=== PATIENT | female | born 1960 | race Caucasian/White ===

== ENCOUNTER 2016-11-25 21:35 | Emergency (ER) | payer SELFPAY ==
[2016-11-25 21:44] VITALS: BP 156/115; PULSE 99; RESP 20; TEMP 98.1; O2SAT 93
[2016-11-25] MEDS ORDERED: IBUPROFEN 600 MG TAB PO ONE (22:11)
[2016-11-25] MEDS ORDERED: ACETAMINOPHEN 500 MG TAB PO ONE (22:11)
[2016-11-25] MEDS ORDERED: PANTOPRAZOLE SODIUM 40 MG TAB PO ONE (22:11)
--- NOTE | 2016-11-25 22:12 | EDPHY ---
H & P Stated Complaint: Atraumatic back pain Time Seen by Provider: 11/25/16 21:59 HPI/ROS: Plane: Back pain HPI: 56-year-old woman states that she just arrived today number from [place] and arrived here for 3 o'clock this afternoon. Patient states she has been walking all day and is exacerbating her low back pain. She states she has a history of a disc herniation at L4-L5 and her pain is acting up. She has been able to ambulate but has been caring very heavy backpack and caring bags. She is in the emergency department tonight stating her pain is under control and that she needs Percocet. She states the only thing she is taking medical marijuana which has not helped. She has not taken any anti-inflammatories or other analgesia. Denies any new numbness or tingling. No difficulty with bowel or bladder. No fevers or chills. Denies IV drug use. ROS: 10 point Review of Systems is negative except as noted in the HPI. Past medical history: Chronic back pain Medications: None Allergies: Penicillin Physical exam: Gen: Awake, Alert, No Distress HEENT: Nose: no rhinorrhea Eyes: PERRLA, EOMI Mouth: Moist mucosa Neck: Supple, no JVD Chest: nontender, lungs clear to auscultation Heart: S1, S2 normal, no murmur Abd: Soft, non-tender, no guarding Back: no CVA tenderness, no midline tenderness Ext: no edema, non-tender Skin: no rash Neuro: CN II-XII intact, Sensation grossly intact, Strength 5/5 in bilateral upper and lower extremities Patient is ambulating unassisted without any difficulty. - Personal History Tetanus Vaccine Date: 2010 - Medical/Surgical History Hx Asthma: No Hx Chronic Respiratory Disease: Yes Hx Diabetes: No Hx Cardiac Disease: No Hx Renal Disease: No Hx Cirrhosis: No Hx Alcoholism: No Hx HIV/AIDS: No Hx Splenectomy or Spleen Trauma: No Other PMH: COPD. RA. Chronic neck pain secondary to slipped disc at C4-C5. PTSD - Social History Smoking Status: Current every day smoker Constitutional: Initial Vital Signs Temperature (C) 36.7 C 11/25/16 21:42 Heart Rate 99 11/25/16 21:42 Respiratory Rate 20 11/25/16 21:42 Blood Pressure 156/115 H 11/25/16 21:42 O2 Sat (%) 93 11/25/16 21:42 O2 Delivery Mode Room Air Allergies/Adverse Reactions: Penicillins Allergy (Unknown, Verified 05/16/12 22:35) egg Allergy (Verified 11/25/16 21:42) Home Medications: Medication Instructions Recorded Flexeril 01/10/14 Hydroxychloroquine Sulfate 01/11/14 Ibuprofen [Motrin (*)] 600 mg PO TID PRN #20 tab 01/11/14 Percocet 5/325 (RX) 01/11/14 Medical Decision Making ED Course/Re-evaluation: 56-year-old woman walked in the emergency department caring 2 very large back Russell complaining of an exacerbation of her chronic back pain and stating that she requires Percocet. Patient states she just arrived from [facility] to [facility] and has been walking all day caring her heavy bags exacerbating her chronic pain. Patient not tried any other medications. I will give her ibuprofen and acetaminophen and reassess. 0605 patient states that her pain is not improved. I have again reiterated that I do not feel that narcotics are appropriate treatment for her back aching from her caring her heavy bags today. Patient became angry and stated that she would then be leaving if I was not going to give her any narcotics. 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 There is no evidence of acute pain in any of her movements and she ambulated without any difficulty. - Data Points Medications Given: Discontinued Medications Acetaminophen (Tylenol) 1,000 mg PO EDNOW ONE Stop: 11/25/16 22:12 Last Admin: 11/25/16 22:20 Dose: 1,000 mg Ibuprofen (Motrin) 600 mg PO EDNOW ONE Stop: 11/25/16 22:12 Last Admin: 11/25/16 22:20 Dose: 600 mg Pantoprazole Sodium (Protonix) 40 mg PO EDNOW ONE Stop: 11/25/16 22:12 Last Admin: 11/25/16 22:20 Dose: 40 mg Departure - Departure Disposition: Against Medical Advice Clinical Impression: Back pain Condition: Good Instructions: Chronic Back Pain (ED) Additional Instructions: Follow up with the [facility] for any concerns. Referrals: Patient,NotPresent [Unknown] - As per Instructions [facility],. [Clinic] - As per Instructions
== END 2016-11-25 23:31 | disposition left against medical advice (07) ==
LOC: EDUNIT#
DX: M54.5 Low back pain (principal); J44.9 Chronic obstructive pulmonary disease, unspecified; F17.200 Nicotine dependence, unspecified, uncomplicated

== ENCOUNTER 2016-11-28 20:13 | Emergency (ER) | payer MEDICAID, OTHER ==
--- NOTE | 2016-11-28 20:21 | EDPHY ---
H & P Time Seen by Provider: 11/28/16 20:21 - Personal History Tetanus Vaccine Date: 2010 - Medical/Surgical History Hx Asthma: No Hx Chronic Respiratory Disease: Yes Hx Diabetes: No Hx Cardiac Disease: No Hx Renal Disease: No Hx Cirrhosis: No Hx Alcoholism: No Hx HIV/AIDS: No Hx Splenectomy or Spleen Trauma: No Other PMH: COPD. RA. Chronic neck pain secondary to slipped disc at C4-C5. PTSD - Social History Smoking Status: Current every day smoker Allergies/Adverse Reactions: Penicillins Allergy (Unknown, Verified 05/16/12 22:35) egg Allergy (Verified 11/25/16 21:42) Home Medications: Medication Instructions Recorded Flexeril 01/10/14 Hydroxychloroquine Sulfate 01/11/14 Ibuprofen [Motrin (*)] 600 mg PO TID PRN #20 tab 01/11/14 Percocet 5/325 (RX) 01/11/14 Medical Decision Making ED Course/Re-evaluation: CHIEF COMPLAINT: Right shoulder pain. HISTORY OF PRESENT ILLNESS: The patient is a 56-year-old female who presents with right shoulder pain since yesterday. The silveira is described as stabbing and is worsened with movement. She believes the pain is from having to carry her bag around. She denies numbness or weakness in her right hand. She has no other complaints. REVIEW OF SYSTEMS: A 10 point review of systems was performed and is negative with the exception of the elements mentioned in the history of present illness. PHYSICAL EXAM: HR, BP, O2 Sat, RR. Temp noted General Appearance: Alert, well hydrated, appropriate, and non-toxic appearing. Head: Atraumatic without scalp tenderness or obvious injury Eyes: Pupils equal, round, reactive to light and accommodation, EOMI, no trauma , no injection. Ears: Clear bilaterally, no perforation, normal landmarks Nose: Atraumatic, no rhinorrhea, clear. Throat: There is no erythema or exudates, no lesions, normal tonsils, mucus membranes moist. Neck: Supple, 2+ carotid upstroke, nontender, no lymphadenopathy. Respiratory: No retractions, no distress, no wheezes, and no accessory muscle use. Lungs are clear to auscultation bilaterally. Cardiovascular: Regular rate and rhythm, no murmurs, rubs, or gallops. Bilateral carotid, radial, dorsalis pedis, and posterior tibial pulses intact. Good capillary refill all extremities. Gastrointestinal: Abdomen is soft, nontender, non-distended, no masses, no rebound, no guarding, no peritoneal signs. Musculoskeletal: Right shoulder pain with range of motion. Neurological: Alert, appropriate, and interactive. The patient has normal DTRs and non-focal cranial nerves, motor, sensory, and cerebellar exam. Skin: No rashes, good turgor, no nodules on palpation. Past medical history:Left shoulder injury. Past surgical history:Denies. Family history:N/A. Social history:Has 6 kids. DIFFERENTIAL DIAGNOSIS: The differential diagnosis includes but is not limited to: sprain, strain, fracture, dislocation. MEDICAL DECISION MAKIN-year-old female presents with 2 days of right shoulder pain that was caused by carrying her large bag of belongings. She has no distal neurological deficits , no numbness, no weakness. She has pain with range of motion of her shoulder. I do not believe an x-ray is indicated. She needs an MRI and will be given referral to orthopedics for this. I discussed opiate pain medications with her. She understands she will be unable to return to get more. She will be given a take home pack of Vicodin and a prescription for Diclofenac Sodium. She is comfortable with the plan. Departure - Departure Disposition: Home, Routine, Self-Care Clinical Impression: Sprain of right shoulder Qualifiers: Encounter type: initial encounter Shoulder sprain type: unspecified sprain Qualified Code(s): S43.401A - Unspecified sprain of right shoulder joint, initial encounter Condition: Good Instructions: Shoulder Sprain (ED), Hydrocodone/Acetaminophen (By mouth) Additional Instructions: Call Dr. Montes, orthopedics, tomorrow to set up an appointment. Return to the emergency department for any serious worsening of condition. Referrals: Heidy Montes MD [Medical Doctor] - As per Instructions Report Scribed for: Brian Paulson Report Scribed by: Aidne Young Date of Report: 11/28/16 Time of Report: 20:26
[2016-11-28] MEDS ORDERED: HYDROCOD/APAP 5/325 PREPACK#6 BTL TAKEHOME ONE (20:26)
[2016-11-28 20:28] VITALS: BP 170/100; PULSE 81; RESP 16; TEMP 97.9; O2SAT 100
== END 2016-11-28 21:06 | disposition home or self-care (01) ==
LOC: EDUNIT#
DX: S43.401A Unspecified sprain of right shoulder joint, initial encounter (principal); J44.9 Chronic obstructive pulmonary disease, unspecified; F17.200 Nicotine dependence, unspecified, uncomplicated; X58.XXXA Exposure to other specified factors, initial encounter
CPT/HCPCS: A4565

== ENCOUNTER 2016-12-21 14:21 | Emergency (ER) | payer MEDICAID ==
--- NOTE | 2016-12-21 14:31 | EDPHY ---
H & P Time Seen by Provider: 12/21/16 14:23 HPI/ROS: Chief complaint. Shortness of breath HPI. 56-year-old female history of COPD here by EMS with complaint of shortness of breath Patient was seen by both Dr. Joel and Vineet. He will continue her care ROS Constitutional. [no fever/chills, no weakness] Eyes. [no problems with vision] ENT. [no sore throat, no nasal drainage] Cardiovascular. [no chest pain] Respiratory. [no shortness of breath, no cough] Abdominal. [no abdominal pain, no nausea/vomiting, no diarrhea] . [no problems urinating] MS. [no calf pain/swelling, no neck/back pain, no joint pain] Skin. [no rash] Lymph. [no swollen glands] Neuro. [no headache, no dizziness, no difficulty walking or with speech] Smoking Status: Current every day smoker Allergies/Adverse Reactions: Penicillins Allergy (Unknown, Verified 05/16/12 22:35) egg Allergy (Verified 11/25/16 21:42) Home Medications: Medication Instructions Recorded Flexeril 01/10/14 Hydroxychloroquine Sulfate 01/11/14 Ibuprofen [Motrin (*)] 600 mg PO TID PRN #20 tab 01/11/14 Percocet 5/325 (RX) 01/11/14 Diclofenac Sodium [Voltaren 50 MG 50 mg PO BID #30 tab 11/28/16 (*)] Departure - Departure Referrals: NONE *PRIMARY CARE P,. [Primary Care Provider] - As per Instructions
[2016-12-21] MEDS ORDERED: LORazepam 2 MG/ML INJ IVP ONE (14:32)
[2016-12-21] MEDS ORDERED: IPRATROPIUM/ALBUTEROL 3 ML DEYVIAL IH ONE ×2 (14:32→15:49)
--- NOTE | 2016-12-21 14:49 | EDPHY ---
H & P Time Seen by Provider: 12/21/16 14:23 HPI/ROS: CHIEF COMPLAINT: Shortness of breath HISTORY OF PRESENT ILLNESS: Patient is a 56-year-old [facility] complaining of shortness of breath. She has a history of COPD. She states that she is exposed to black mold at the homeless [facility] and thinks that it is exacerbating her symptoms. She does not have any home albuterol. She is not taking any medications. She states in the past she has been on steroids but they make her feel crazy. She denies any recent fevers or viral type illness. No runny nose. No sore throat. REVIEW OF SYSTEMS: Constitutional: denies: chills, fever, recent illness, recent injury EENTM: denies: blurred vision, double vision, nose congestion Respiratory: See HPI Cardiac: denies: chest pain, irregular heart rate, lightheadedness, palpitations Gastrointestinal/Abdominal: denies: abdominal pain, diarrhea, nausea, vomiting, blood streaked stools Genitourinary: denies: dysuria, frequency, hematuria, pain Musculoskeletal: denies: joint pain, muscle pain Skin: denies: lesions, rash, jaundice, bruising Neurological: denies: headache, numbness, paresthesia, tingling, dizziness, weakness Hematologic/Lymphatic: denies: blood clots, easy bleeding, easy bruising Immunologic/allergic: denies: HIV/AIDS, transplant EXAM: GENERAL: Well-appearing, well-nourished and in no acute distress. HEAD: Atraumatic, normocephalic. EYES: Pupils equal round and reactive to light, extraocular movements intact, sclera anicteric, conjunctiva are normal. ENT: TMs normal, nares patent, oropharynx clear without exudates. Moist mucous membranes. NECK: Normal range of motion, supple without lymphadenopathy or JVD. LUNGS: Breath sounds clear to auscultation bilaterally and equal. No wheezes rales or rhonchi. HEART: Regular rate and rhythm without murmurs, rubs or gallops. ABDOMEN: Soft, nontender, normoactive bowel sounds. No guarding, no rebound. No masses appreciated. BACK: No CVA tenderness, no spinal tenderness, step-offs or deformities EXTREMITIES: Normal range of motion, no pitting or edema. No clubbing or cyanosis. NEUROLOGICAL: Cranial nerves II through XII grossly intact. Normal speech, normal gait. 5/5 strength, normal movement in all extremities, normal sensation PSYCH: Normal mood, normal affect. SKIN: Warm, dry, normal turgor, no visible rashes or lesions. Source: Patient Exam Limitations: No limitations - Personal History Tetanus Vaccine Date: 2010 - Medical/Surgical History Hx Asthma: No Hx Chronic Respiratory Disease: Yes Hx Diabetes: No Hx Cardiac Disease: No Hx Renal Disease: No Hx Cirrhosis: No Hx Alcoholism: No Hx HIV/AIDS: No Hx Splenectomy or Spleen Trauma: No Other PMH: COPD. RA. Chronic neck pain secondary to slipped disc at C4-C5. PTSD - Family History Significant Family History: No pertinent family hx - Social History Smoking Status: Current every day smoker Alcohol Use: Sober Drug Use: None Constitutional: Initial Vital Signs Temperature (C) 37.2 C 12/21/16 14:46 Heart Rate 117 H 12/21/16 14:46 Respiratory Rate 22 H 12/21/16 14:46 Blood Pressure 177/86 H 12/21/16 14:46 O2 Sat (%) 95 12/21/16 14:46 O2 Delivery Mode Room Air Allergies/Adverse Reactions: Penicillins Allergy (Unknown, Verified 05/16/12 22:35) egg Allergy (Verified 11/25/16 21:42) Home Medications: Medication Instructions Recorded Ibuprofen [Motrin (*)] 600 mg PO TID PRN #20 tab 01/11/14 levOFLOXACIN [levAQUIN] 750 mg PO DAILY #10 tab 12/21/16 Medical Decision Making ED Course/Re-evaluation: Patient is demanding a test for black mold in her blood. We discussed the fact that this is not going to be beneficial to her acute treatment. She would like to have it done so that she knows whether not it is black mold she was exposed to. She will follow up with the results her primary physician. She is also requesting some Ativan and states that she has a history of anxiety. Breath sounds are clear. We will treat her with DuoNeb and re-evaluate. 4:05 p.m. the patient is doing much better. She is requesting a cough suppressant. She states she cannot feel prescriptions. I will give her codeine here and a take-home pack of Vicodin. Also I will treat her with albuterol. She declines steroids. She also requested the recheck her urine because she has had some dysuria although later told us that she does not have dysuria. 4:24 p.m. the patient the urine is borderline positive. She complains of urination when she is coughing. She states that last time that happened was a urinary tract infection. I will treat her with Levaquin which should cover urinary pathogens as well as long. She does not have money to fill the prescription will ask pharmacy to do it. Differential Diagnosis: Partial list of the Differential diagnosis considered include but were not limited to; COPD, asthma exacerbation and although unlikely based on the history and physical exam, I also considered bronchitis, pneumonia, acute coronary disease, dissection, PE. I discussed these differential diagnoses and the plan with the patient as well as the usual and expected course. The patient understands that the diagnosis is provisional and that in medicine we are not always correct and that further workup is often warranted. Usual and customary warnings were given. All of the patient's questions were answered. The patient was instructed to return to the emergency department should the symptoms at all worsen or return, otherwise to followup with the physician as we discussed. - Data Points Laboratory Results: 12/21/16 12/21/16 12/21/16 16:47 15:15 15:00 Urine Color YELLOW Urine Appearance CLEAR Urine pH 6.0 (5.0-7.5) Ur Specific [place] 1.005 (1.002-1.030) Urine Protein NEGATIVE (NEGATIVE) Urine Ketones NEGATIVE (NEGATIVE) Urine Blood 1+ H (NEGATIVE) Urine Nitrate NEGATIVE (NEGATIVE) Urine Bilirubin NEGATIVE (NEGATIVE) Urine Urobilinogen NEGATIVE EU EU (0.2-1.0) Ur Leukocyte Esterase TRACE H (NEGATIVE) Urine RBC 3-5 /hpf H /hpf (0-3) Urine WBC 1-3 /hpf /hpf (0-3) Ur Epithelial Cells TRACE /lpf /lpf (NONE-1+) Urine Bacteria TRACE /hpf H /hpf (NONE SEEN) Urine Mucus TRACE /lpf /lpf (NONE-1+) Urine Glucose NEGATIVE (NEGATIVE) Influenza Typ A,B (DFA) NEGATIVE FOR FLU (NEGATIVE) Miscellaneous Test Pending Medications Given: Discontinued Medications Acetaminophen/Codeine Phosphate (Tylenol #3) 2 tab PO EDNOW ONE Stop: 12/21/16 16:09 Last Admin: 12/21/16 16:13 Dose: 2 tab Hydrocodone Bitart/Acetaminophen ([place] 5/325mg Prepack#6) 1 btl TAKEHOME EDNOW ONE Stop: 12/21/16 16:11 Last Admin: 12/21/16 16:42 Dose: 1 btl Albuterol Sulfate (Proventil Inh Prepack) 1 mdi TAKEHOME EDNOW ONE Stop: 12/21/16 16:11 Last Admin: 12/21/16 16:41 Dose: 1 mdi Albuterol/Ipratropium (Duoneb) 3 ml IH EDNOW ONE Stop: 12/21/16 14:33 Last Admin: 12/21/16 14:40 Dose: 3 ml Albuterol/Ipratropium (Duoneb) 3 ml IH EDNOW ONE Stop: 12/21/16 15:50 Last Admin: 12/21/16 15:50 Dose: 3 ml Lorazepam (Ativan Injection) 1 mg IVP EDNOW ONE Stop: 12/21/16 14:33 Last Admin: 12/21/16 15:18 Dose: 1 mg Departure - Departure Disposition: Home, Routine, Self-Care Clinical Impression: Exacerbation of asthma Urinary tract infection Qualifiers: Urinary tract infection type: acute cystitis Hematuria presence: without hematuria Qualified Code(s): N30.00 - Acute cystitis without hematuria Condition: Fair Instructions: Albuterol (By breathing), Asthma (ED) Referrals: Lincoln Damico MD [[facility] Primary Care Provider] - As per Instructions Prescriptions: levOFLOXACIN [levAQUIN] 750 mg PO DAILY #10 tab
[2016-12-21] MEDS ORDERED: IPRATROPIUM/ALBUTEROL 3 ML DEYVIAL ONE (16:04)
[2016-12-21 16:08] VITALS: O2SAT 92
[2016-12-21 16:08] LABS: COLOR YELLOW; LEUKOCYTE ESTERASE,URINE TRACE (NEGATIVE); NITRITE,URINE NEGATIVE (NEGATIVE)
[2016-12-21] MEDS ORDERED: ACETAMINOPHEN/CODEINE 300/30MG TAB PO ONE (16:08)
[2016-12-21] MEDS ORDERED: ALBUTEROL INH PREPACK MDI TAKEHOME ONE (16:10)
[2016-12-21] MEDS ORDERED: HYDROCOD/APAP 5/325 PREPACK#6 BTL TAKEHOME ONE (16:10)
[2016-12-21 16:20] LABS: BACTERIA TRACE /hpf (NONE SEEN); MUCUS TRACE /lpf (NONE-1+)
[2016-12-21 16:57] VITALS: BP 154/76; PULSE 95; RESP 18; TEMP 97.7
== END 2016-12-21 16:55 | disposition home or self-care (01) ==
LOC: EDUNIT#
DX: J45.901 Unspecified asthma with (acute) exacerbation (principal); J44.9 Chronic obstructive pulmonary disease, unspecified; F17.200 Nicotine dependence, unspecified, uncomplicated; N30.00 Acute cystitis without hematuria; B96.89 Other specified bacterial agents as the cause of diseases classified elsewhere
CPT/HCPCS: 96374; J2060

== ENCOUNTER 2016-12-22 21:17 | Emergency (ER) | payer MEDICAID ==
[2016-12-22] MEDS ORDERED: IPRATROPIUM/ALBUTEROL 3 ML DEYVIAL IH ONE (21:46)
--- NOTE | 2016-12-22 21:47 | EDPHY ---
H & P Stated Complaint: cough ,sob Source: Patient Exam Limitations: No limitations - Personal History Current Tetanus Diphtheria and Acellular Pertussis (TDAP): Yes Tetanus Vaccine Date: 2010 - Medical/Surgical History Hx Asthma: No Hx Chronic Respiratory Disease: Yes Hx Diabetes: No Hx Cardiac Disease: No Hx Renal Disease: No Hx Cirrhosis: No Hx Alcoholism: No Hx HIV/AIDS: No Hx Splenectomy or Spleen Trauma: No Other PMH: COPD. RA. Chronic neck pain secondary to slipped disc at C4-C5. PTSD - Social History Smoking Status: Current every day smoker Time Seen by Provider: 12/22/16 21:20 HPI/ROS: CHIEF COMPLAINT: cough HISTORY OF PRESENT ILLNESS: 56-year-old female presents emergency department complaining of a continued cough. Patient was seen in the emergency department yesterday and treated with Levaquin and albuterol inhaler. She has a history of COPD and has had a cough for 3 days. Patient [facility], reports she is exposed to black mold. Patient is a daily cigarette smoker. Patient reports a headache today from coughing so much. She denies sore throat, no runny nose. No fevers. No chest pain. REVIEW OF SYSTEMS: A comprehensive 10 point review of systems is otherwise negative aside from elements mentioned in the history of present illness. (Odalis Ayers) - Physical Exam Exam: Physical Exam Gen: Alert and Oriented, NAD HEENT: PERRL, moist mucous membranes NECK: no meningismus CV: Tachycardic rate and regular rhythm PULM: decreased throughout, no wheezes ABDOMEN: soft, non tender to palpation, BS present BACK: No CVA tenderness NEURO: Neurologically grossly intact EXTREMITIES: normal appearing SKIN: no rash or break in skin on exposed skin PSYCH: answers questions appropriately. (Odalis Ayers) Constitutional: Initial Vital Signs Temperature (C) 36.6 C 12/22/16 21:20 Heart Rate 103 H 12/22/16 21:20 Respiratory Rate 18 12/22/16 21:20 Blood Pressure 158/100 H 12/22/16 21:20 O2 Sat (%) 91 L 12/22/16 21:20 O2 Delivery Mode Room Air O2 (L/minute) 2 Allergies/Adverse Reactions: Penicillins Allergy (Unknown, Verified 05/16/12 22:35) egg Allergy (Verified 11/25/16 21:42) Home Medications: Medication Instructions Recorded Ibuprofen [Motrin (*)] 600 mg PO TID PRN #20 tab 01/11/14 levOFLOXACIN [levAQUIN] 750 mg PO DAILY #10 tab 12/21/16 predniSONE 60 mg PO DAILY #12 tab 12/22/16 Medical Decision Making - Diagnostics Imaging: Chest x-ray independently reviewed by me Impression: 1. Prominence of perihilar interstitial markings and peribronchial cuffing. Findings are nonspecific but can be seen with bronchitis, reactive airway disease, or viral process. 2. Hyperexpanded lungs possibly from underlying air trapping or COPD. Dictated By: Max Alcantar MD (Odalis Ayers) ED Course/Re-evaluation: Patient was given a DuoNeb in the emergency department, a chest x-ray was obtained. No evidence of pneumonia, room air oxygen saturations ranged between 90 and 93%. Patient refused steroids yesterday in the emergency department, I talked with her and after further discussion she agreed to started a 5 day course of prednisone. She was given her 1st dose of 60 mg of prednisone in the emergency department tonight. Patient will be discharged home. She is given return precautions for worsening symptoms. (Odalis Ayers) I did not see this patient while she was in the emergency department. However her care was discussed with the nurse practitioner while the patient in the department. I agree with treatment plan and management (Jez Dunham) Differential Diagnosis: Diagnosis considered but not limited to pneumonia, COPD exacerbation, influenza , URI (Odalis Ayers) - Data Points Medications Given: Discontinued Medications Acetaminophen (Tylenol) 650 mg PO EDNOW ONE Stop: 12/22/16 21:57 Last Admin: 12/22/16 22:00 Dose: 650 mg Albuterol/Ipratropium (Duoneb) 3 ml IH EDNOW ONE Stop: 12/22/16 21:47 Last Admin: 12/22/16 21:53 Dose: 3 ml Ibuprofen (Motrin) 600 mg PO EDNOW ONE Stop: 12/22/16 21:57 Last Admin: 12/22/16 22:00 Dose: 600 mg Prednisone (Prednisone) 60 mg PO EDNOW ONE Stop: 12/22/16 22:18 Last Admin: 12/22/16 22:25 Dose: 60 mg Departure - Departure Disposition: Home, Routine, Self-Care Clinical Impression: Chronic obstructive pulmonary disease with acute exacerbation Condition: Good Instructions: COPD (Chronic Obstructive Pulmonary Disease) (ED) Additional Instructions: Continue taking your medication as prescribed, take 60 mg of prednisone daily for the next 4 days. Finish taking your antibiotics you were given yesterday. Return to the emergency department for any new symptoms, worsening symptoms or concerns. Stop smoking cigarettes. Referrals: [facility] [Outside] - As per Instructions Prescriptions: predniSONE 60 mg PO DAILY #12 tab
[2016-12-22] MEDS ORDERED: ACETAMINOPHEN 325 MG TAB PO ONE (21:56)
[2016-12-22] MEDS ORDERED: IBUPROFEN 600 MG TAB PO ONE (21:56)
[2016-12-22] MEDS ORDERED: predniSONE 20 MG TAB PO ONE (22:17)
[2016-12-22 22:27] VITALS: TEMP 98.2
[2016-12-22 23:48] VITALS: BP 112/73; PULSE 99; RESP 16; O2SAT 94
== END 2016-12-22 23:49 | disposition home or self-care (01) ==
LOC: EDUNIT#
DX: J44.1 Chronic obstructive pulmonary disease with (acute) exacerbation (principal); F17.200 Nicotine dependence, unspecified, uncomplicated

== ENCOUNTER 2017-01-05 12:14 | Emergency (ER) | payer MEDICAID ==
[2017-01-05 12:25] VITALS: RESP 18
--- NOTE | 2017-01-05 12:37 | EDPHY ---
HPI/HX/ROS/PE/MDM Narrative: CHIEF COMPLAINT: Cough, shortness of breath. HPI: The patient is a 56-year-old female who presents with shortness of breath and cough. She admits associated diarrhea. She was diagnosed with pneumonia a couple of weeks ago and finished her antibiotic course 4 days ago. She is concerned that she has a black mold infection in her lung. She denies fever, vomiting, or other complaints. REVIEW OF SYSTEMS: Aside from elements discussed in the HPI, a comprehensive 10-point review of systems was reviewed and is negative. PMH: Chronic neck pain, PTSD, COPD, RA. SOCIAL HISTORY: Homeless. PHYSICAL EXAM: General: Patient is alert, in no acute distress. ENT: Eyes are normal to inspection. ENT inspection normal. Respiratory: No respiratory distress. Speaking in full sentences. Neuro: Oriented x3. Normal motor function. Normal sensory function. Portions of this note were transcribed by an ED scribe. I personally performed the history, physical exam, and medical decision making; and confirm the accuracy of the information in the transcribed note. ED Course: 56-year-old female presents with shortness of breath and cough. She finished a course of antibiotics for pneumonia 4 days ago and is worried this has come back. She is also concerned she has a black mold exposure in her lung. However, her black mold screening test did return negative. She is not hypoxic and vitals are stable. I have ordered a chest x-ray. I independently viewed the patient's chest x-ray on the PACS system. My interpretation: no pneumonia. Please see Imaging section for radiologist report. She will be discharged in good condition with [facility] follow up. MDM: This patient presents the emergency department demanding to be admitted to the hospital for IV antibiotics to take care which she believes is a black mold infection. The patient tells me she only has 1 lung secondary to something related to June 05. The patient has normal vital signs, is not hypoxic and her chest x-ray is stable. I reviewed her records and she actually tested negative for specific antigen for black mold. I explained to the patient that there is no indication for admission and she became very upset. She tells me she will just return to the emergency department tomorrow so she will be admitted then. General Time Seen by Provider: 01/05/17 12:36 Initial Vital Signs: Initial Vital Signs Temperature (C) 37 C 04/13/17 12:23 Heart Rate 104 H 01/05/17 12:23 Respiratory Rate 18 01/05/17 12:23 Blood Pressure 165/113 H 01/05/17 12:23 O2 Sat (%) 92 01/05/17 12:23 O2 Delivery Mode Room Air Allergies/Adverse Reactions: Penicillins Allergy (Unknown, Verified 01/05/17 12:22) egg Allergy (Verified 01/05/17 12:22) Home Medications: Medication Instructions Recorded NK [No Known Home Meds] 01/05/17 Departure - Departure Disposition: Home, Routine, Self-Care Clinical Impression: Bronchitis Condition: Good Instructions: Acute Bronchitis (ED) Additional Instructions: Follow up with [facility] for reevaluation. Return to the emergency department for any serious worsening of condition. Referrals: [facility],. [Clinic] - As per Instructions Report Scribed for: Escobar Miller Report Scribed by: Aiden Young Date of Report: 01/05/17 Time of Report: 12:36
[2017-01-05 13:12] VITALS: BP 146/98; PULSE 93; TEMP 98.6; O2SAT 96
== END 2017-01-05 13:12 | disposition home or self-care (01) ==
DX: J40 Bronchitis, not specified as acute or chronic (principal); J44.9 Chronic obstructive pulmonary disease, unspecified; R19.7 Diarrhea, unspecified

== ENCOUNTER 2017-01-06 20:20 | Observation (INO) | payer MEDICAID ==
[2017-01-06] MEDS ORDERED: IPRATROPIUM/ALBUTEROL 3 ML DEYVIAL ONE (20:30)
[2017-01-06] MEDS ORDERED: IPRATROPIUM/ALBUTEROL 3 ML DEYVIAL IH ONE (20:33)
[2017-01-06 22:28] LABS: % IMMATURE GRANULYOCYTES 0.3 % (0.0-1.1); ABSOLUTE IMMATURE GRANULOCYTES 0.03 10^3/uL (0.00-0.10); ADD DIFF? NO; ADD MORPH? NO; ADD SCAN? NO; ATYPICAL LYMPHOCYTE FLAG 50 (0-99); FRAGMENT RBC FLAG 0 (0-99); HEMATOCRIT 45.1 % (38.0-47.0); HEMOGLOBIN 14.6 g/dL (12.6-16.3); LEFT SHIFT FLG 0 (0-99); LIPEMIA HEMOLYSIS FLAG 80 (0-99); MEAN CELL HEMOGLOBIN 29.3 pg (27.9-34.1); MEAN CELL HEMOGLOBIN CONCENTR. 32.4 g/dL (32.4-36.7); MEAN CELL VOLUME 90.4 fL (81.5-99.8); MEAN PLATELET VOLUME 9.8 fL (8.7-11.7); PLATELET CLUMPS FLAG 0 (0-99); PLATELET COUNT 304 10^3/uL (150-400); RED BLOOD CELL COUNT 4.99 10^6/uL (4.18-5.33); RED CELL DISTRIBUTION WIDTH 13.2 % (11.5-15.2)
[2017-01-06 22:36] LABS: ANION GAP 8 mEq/L (8-16); CARBON DIOXIDE 26 mEq/l (22-31); CHLORIDE 105 mEq/L (97-110); CREATININE 0.7 mg/dL (0.6-1.0); GLOMERULAR FILTRATION RATE > 60; GLUCOSE 119 mg/dL (70-100); POTASSIUM 4.1 mEq/L (3.5-5.2); SODIUM 139 mEq/L (134-144)
[2017-01-06] MEDS ORDERED: ONDANSETRON 4 MG/2 ML VIAL IVP PRN (23:33)
[2017-01-06] MEDS ORDERED: ACETAMINOPHEN 325 MG TAB PO PRN (23:33)
[2017-01-06] MEDS ORDERED: ONDANSETRON DISINTEGRATING 4 MG TAB PO PRN (23:33)
[2017-01-06] MEDS ORDERED: IPRATROPIUM BROMIDE 0.5 MG/2.5 ML DEYVIAL IH PRN (23:35)
--- NOTE | 2017-01-06 23:39 | PDGENHP ---
History and Physical - Chief Complaint shortness of breath - History of Present Illness patient is a 56-year-old female with history of COPD /interstitial lung disease , continued tobacco use, chronic back pain, arthritis who presents to the ED with a complaint of shortness of breath. Patient has been seen for similar symptoms 3 times in the past 2 weeks. About 2 weeks ago she was given a course of antibiotics and oral steroids, both of which she completed 01/01. She reports since completing her steroids/abx, she has had a persistent, dry/nonproductive cough, associated with shortness of breath and wheezing. SHe feels her symptoms are related to a black mold present in her homeless group home, however, the antigen for this was checked several weeks ago and has returned negative. Currently, she denies any fever, chills, headache, chest pain, palpitations, nausea/vomiting/diarrhea. On arrival to the ED, patient was afebrile and hemodynamically stable. Labs were unremarkable and cxr was unchanged from her baseline (interstitial lung disease, no acute infiltrate/edema). She was given nebs and then admitted to the hospitalist service for further management. History Information - Allergies/Home Medication List Allergies/Adverse Reactions: Penicillins Allergy (Unknown, Verified 01/06/17 20:29) egg Allergy (Verified 01/06/17 20:29) mushroom Allergy (Verified 01/06/17 20:29) Home Medications: Ventolin Hfa Inhaler 01/06/17 [Last Taken Unknown] I have personally reviewed and updated: family history, medical history, social history, surgical history - Past Medical History Additional medical history: COPD. ? Interstitial lung disease (patient reports this is due to 06/05 dust exposure). chronic low back pain. osteoarthritis - Surgical History Reports: no pertinent surgical hx - Family History Positive for: non-pertinent - Social History Smoking Status: Current every day smoker (09/28-1/ PPD x >30 years) Alcohol Use: None Drug Use: None Additional social history: Patient is homeless, reports was kicked out of [facility] on 01/01/2017. She reports she is originally from [place], moved to [place] after 06/05. Review of Systems ROS: 10pt was reviewed & negative except for what was stated in HPI & below Physical Exam Temp Pulse Resp BP Pulse Ox 38 C 98 20 129/81 H 94 01/06/17 21:56 01/06/17 21:56 01/06/17 21:56 01/06/17 21:56 01/06/17 21:56 Constitutional: no apparent distress, appears nourished, not in pain, unkempt Eyes: PERRL, anicteric sclera, EOMI Ears, Nose, Mouth, Throat: moist mucous membranes, hearing normal, ears appear normal, no oral mucosal ulcers Cardiovascular: regular rate and rhythym, no murmur, rub, or gallop, pulses symmetric bilaterally, No JVD, No edema Peripheral Pulses: 2+: dorsalis-pedis (R), dorsalis-pedis (L) Respiratory: no respiratory distress, no rales or rhonchi, clear to auscultation Gastrointestinal: normoactive bowel sounds, soft, non-tender abdomen, no palpable masses Genitourinary: no bladder fullness, no bladder tenderness Skin: warm, normal color, no rashes or abrasions, no fluctuance, no induration, No mottled Musculoskeletal: full muscle strength, no muscle tenderness, normal joint ROM, no joint effusions Neurologic: AAOx3, sensation intact bilaterally, CN II-XII Intact, No weakness, No numbness, No facial droop Psychiatric: interacting appropriately, not anxious, not encephalopathic, thought process linear Lab Data & Imaging Review 01/06/17 22:15 01/06/17 22:15 WBC 9.05 10^3/uL (3.80-9.50) 01/06/17 22:15 RBC 4.99 10^6/uL (4.18-5.33) 01/06/17 22:15 Hgb 14.6 g/dL (12.6-16.3) 01/06/17 22:15 Hct 45.1 % (38.0-47.0) 01/06/17 22:15 MCV 90.4 fL (81.5-99.8) 01/06/17 22:15 MCH 29.3 pg (27.9-34.1) 01/06/17 22:15 MCHC 32.4 g/dL (32.4-36.7) 01/06/17 22:15 RDW 13.2 % (11.5-15.2) 01/06/17 22:15 Plt Count 304 10^3/uL (150-400) 01/06/17 22:15 MPV 9.8 fL (8.7-11.7) 01/06/17 22:15 Neut % (Auto) 70.6 % (39.3-74.2) 01/06/17 22:15 Lymph % (Auto) 19.7 % (15.0-45.0) 01/06/17:15 [place] % (Auto) 7.8 % (4.5-13.0) 01/06/17:15 Eos % (Auto) 1.2 % (0.6-7.6) 01/06/17:15 Baso % (Auto) 0.4 % (0.3-1.7) 01/06/17: Nucleat RBC Rel Count 0.0 % (0.0-0.2) 01/06/17:15 Absolute Neuts (auto) 6.38 10^3/uL (1.70-6.50) 01/06/17:15 Absolute Lymphs (auto) 1.78 10^3/uL (1.00-3.00) 01/06/17:15 Absolute Monos (auto) 0.71 10^3/uL (0.30-0.80) 01/06/17:15 Absolute Eos (auto) 0.11 10^3/uL (0.03-0.40) 01/06/17:15 Absolute Basos (auto) 0.04 10^3/uL (0.02-0.10) 01/06/17:15 Absolute Nucleated RBC 0.00 10^3/uL (0-0.01) 01/06/17:15 Immature Gran % 0.3 % (0.0-1.1) 01/06/17: Immature Gran # 0.03 10^3/uL (0.00-0.10) 01/06/17:15 D-Dimer 0.48 ug/mLFEU (0.00-0.50) 01/06/17 22:15 Sodium 139 mEq/L (134-144) 01/06/17 22:15 Potassium 4.1 mEq/L (3.5-5.2) 01/06/17:15 Chloride 105 mEq/L (97-110) 01/06/17 22:15 Carbon Dioxide 26 mEq/l (22-31) 01/06/17 22:15 Anion Gap 8 mEq/L (8-16) 01/06/17 22:15 BUN 12 mg/dL (7-23) 01/06/17 22:15 Creatinine 0.7 mg/dL (0.6-1.0) 01/06/17 22:15 Estimated GFR > 60 01/06/17 22:15 Glucose 119 mg/dL (70-100) H 01/06/17 22:15 Calcium 9.0 mg/dL (8.5-10.4) 01/06/17 22:15 Visualized and Interpreted Chest x-ray results: Yes Chest X-Ray results: no infiltrate Assessment & Plan Assessment: patient is a 56-year-old female with history of COPD, interstitial lung disease , chronic pain syndrome and chronic continues tobacco use who presents to the ED with complaint of shortness of breath and nonproductive cough. ED evaluation is unremarkable, patient saturating well in her room air in no respiratory distress. Plan: # dyspnea Likely chronic and related to her underlying lung disease and continued tobacco use. She feels her symptoms are related to a black mold exposure. It is possible that an allergen in her environment is triggering her COPD, however, on my exam patient is not wheezing and has no respiratory symptoms. CXR is unremarkable, Flu swab from 12/21 is negative. Patient is refusing oral steroids at this time and I do not see an indication for them presently. Will continue prn nebs, supplemental O2 and anti-tussive as needed. # continued tobacco use Stressed the importance of smoking cessation, given patient's continued symptoms of dyspnea. She has requested nicotine replacement therapy. # Chronic low back pain Stable, will offer pain control as needed. # dispo: admit to observation status # gen: regular diet DVT ppx: low risk Full code
[2017-01-06] MEDS ORDERED: NS 1,000 ML IV SCH (23:45)
--- NOTE | 2017-01-06 23:47 | EDPHY ---
H & P Stated Complaint: increasing SOB, recent dx of pneumonia 2w ago and bronchitis yesterday HPI/ROS: Chief complaint: Persistent shortness of breath History of present illness: This is a 56-year-old female who is brought to the emergency department by EMS for shortness of breath. Patient reports she has had persistent shortness of breath for the last few weeks. She has been seen in this emergency department on multiple occasions. She reports she has been diagnosed with pneumonia, bronchitis and reactive airway exacerbation. She has been treated with a course of Levaquin. She has been treated with prednisone. She is using an inhaler. She states she has taken these medicines as prescribed. She states despite this she has persistent trouble breathing. She believes this may be secondary to black mold that she has been exposed to. She denies other associated signs or symptoms. Review of systems: A 10 point review of systems was obtained and other than described above was negative - Personal History Current Tetanus/Diphtheria Vaccine: Unsure Current Tetanus Diphtheria and Acellular Pertussis (TDAP): Unsure Tetanus Vaccine Date: 2010 - Medical/Surgical History Hx Asthma: No Hx Chronic Respiratory Disease: Yes Hx Diabetes: No Hx Cardiac Disease: No Hx Renal Disease: No Hx Cirrhosis: No Hx Alcoholism: No Hx HIV/AIDS: No Hx Splenectomy or Spleen Trauma: No Other PMH: COPD. R lung injury from "06/05" ([facility]). Chronic neck pain secondary to slipped disc at C4-C5. PTSD. herniated disc - Social History Smoking Status: Current every day smoker - Physical Exam Exam: General Appearance: Alert, nontoxic. Eyes: Pupils equal and round no pallor or injection. ENT, Mouth: Mucous membranes moist. Respiratory: Patient talking in full sentences. No use of accessory muscles. Lung sounds are globally diminished. Cardiovascular: Regular rate and rhythm. Gastrointestinal: Abdomen is soft and non tender, no masses, bowel sounds normal. Neurological: Alert and oriented x4. Strength and sensation intact and symmetrical. Skin: Warm and dry, no rashes. Musculoskeletal: Neck is supple non tender. Extremities are symmetrical, full range of motion. Psychiatric: Patient is oriented X 3, there is no agitation. Constitutional: Initial Vital Signs Temperature (C) 37.8 C 01/06/17 20:27 Heart Rate 96 01/06/17 20:27 Respiratory Rate 20 01/06/17 20:27 Blood Pressure 147/84 H 01/06/17 20:27 O2 Sat (%) 95 01/06/17 20:27 O2 Delivery Mode Room Air O2 (L/minute) 2 Allergies/Adverse Reactions: Penicillins Allergy (Unknown, Verified 01/06/17 20:29) egg Allergy (Verified 01/06/17 20:29) mushroom Allergy (Verified 01/06/17 20:29) Home Medications: Medication Instructions Recorded Ventolin Hfa Inhaler 01/06/17 Medical Decision Making - Diagnostics Imaging: Imaging Impressions Chest X-Ray 01/06/17 20:29 Impression: 1. Chronic bronchitis and possible underlying interstitial lung disease. 2. Minimally worse left basilar atelectasis. ED Course/Re-evaluation: Patient is seen in conjunction with my secondary supervising physician Dr. Javi Lozano. Patient presents to the emergency department for shortness of breath. She reports she has been struggling with trouble breathing for the last few weeks. Vital signs are stable. Evaluation is largely unremarkable. However given ongoing shortness of breath and multiple emergency department visits she will be admitted for further evaluation and care. Differential Diagnosis: Included but not limited to reactive airway disease, bronchitis, pneumonia, pneumothorax, pulmonary embolism - Data Points Laboratory Results: Laboratory Results 01/06/17 22:15 01/06/17 22:15 01/06/17 01/06/17 01/06/17 22:15 22:15 22:15 WBC 9.05 10^3/uL 10^3/uL (3.80-9.50) RBC 4.99 10^6/uL 10^6/uL (4.18-5.33) Hgb 14.6 g/dL g/dL (12.6-16.3) Hct 45.1 % % (38.0-47.0) MCV 90.4 fL fL (81.5-99.8) MCH 29.3 pg pg (27.9-34.1) MCHC 32.4 g/dL g/dL (32.4-36.7) RDW 13.2 % % (11.5-15.2) Plt Count 304 10^3/uL 10^3/uL (150-400) MPV 9.8 fL fL (8.7-11.7) Neut % (Auto) 70.6 % % (39.3-74.2) Lymph % (Auto) 19.7 % % (15.0-45.0) [place] % (Auto) 7.8 % % (4.5-13.0) Eos % (Auto) 1.2 % % (0.6-7.6) Baso % (Auto) 0.4 % % (0.3-1.7) Nucleat RBC Rel Count 0.0 % % (0.0-0.2) Absolute Neuts (auto) 6.38 10^3/uL 10^3/uL (1.70-6.50) Absolute Lymphs (auto) 1.78 10^3/uL 10^3/uL (1.00-3.00) Absolute Monos (auto) 0.71 10^3/uL 10^3/uL (0.30-0.80) Absolute Eos (auto) 0.11 10^3/uL 10^3/uL (0.03-0.40) Absolute Basos (auto) 0.04 10^3/uL 10^3/uL (0.02-0.10) Absolute Nucleated RBC 0.00 10^3/uL 10^3/uL (0-0.01) Immature Gran % 0.3 % % (0.0-1.1) Immature Gran # 0.03 10^3/uL 10^3/uL (0.00-0.10) D-Dimer 0.48 ug/mLFEU ug/mLFEU (0.00-0.50) Sodium 139 mEq/L mEq/L (134-144) Potassium 4.1 mEq/L mEq/L (3.5-5.2) Chloride 105 mEq/L mEq/L (97-110) Carbon Dioxide 26 mEq/l mEq/l (22-31) Anion Gap 8 mEq/L mEq/L (8-16) BUN 12 mg/dL mg/dL (7-23) Creatinine 0.7 mg/dL mg/dL (0.6-1.0) Estimated GFR > 60 Glucose 119 mg/dL H mg/dL (70-100) Calcium 9.0 mg/dL mg/dL (8.5-10.4) Medications Given: Discontinued Medications Albuterol/Ipratropium (Duoneb) 3 ml IH EDNOW ONE Stop: 01/06/17 20:34 Last Admin: 01/06/17 20:34 Dose: 3 ml Departure - Departure Disposition: [facility] Clinical Impression: Shortness of breath Condition: Good
[2017-01-07] MEDS: GUAIFENESIN/DM 10 ML UDCUP PO PRN ×2 (01:30→06:01)
[2017-01-07 07:00] VITALS: BP 133/67; PULSE 80; RESP 17; TEMP 98; O2SAT 92
[2017-01-07] MEDS ORDERED: ACETAMINOPHEN 500 MG TAB PO PRN (09:30)
[2017-01-07] MEDS ORDERED: ALBUTEROL 60 PUFFS/8 GM MDI IH PRN (09:30)
--- NOTE | 2017-01-07 16:38 | PDDCSUM ---
Discharge Summary Discharge Summary: DISCHARGE DIAGNOSES: -acute COPD exacerbation -acute hypoxemic respiratory failure HOSPITAL COURSE SUMMARY: -This patient with longstanding COPD and ongoing tobacco abuse came in with shortness of breath. She was treated with bronchodilators nebulizer and responded quite well to these. She did not use steroids per her request. There is no evidenc of pneumonia or other infection. She was monitored overnight and has done well overall with no signs of heart issues. At this point she is stable for discharge to home. She has been using albuterol by inhaler at home without any other medicines. I talked with her at length about medications. She has very little in the way of resources to be able to afford medicines. Her Medicaid is through [place] which limits her coverage here. She does go to [facility] in able to help her out somewhat. I think probably in terms of her symptomatic therapy at this stage given her finances that Atrovent inhaler is most likely to be of real benefit to her. However I encouraged her to work with [facility] to see what they can do to either get this for some long-acting steroid as well to manage her long-term symptoms. MEDICATION CHANGES: Prescription for Atrovent inhalers given with instructions and she will go to [facility] to see if there is a way that she can get this with some assistance as she cannot afford it. Otherwise she will work with them to see what other help they can get for either long-acting inhaled steroid on long- acting inhaled bronchodilators. FOLLOW-UP PLAN: At [facility] this coming week
== END 2017-01-07 14:54 | disposition home or self-care (01) ==
LOC: EDUNIT# → F1N 01-07 00:52
PROVIDERS: ADMIT Internal Medicine; ATTEND Internal Medicine
DX: J44.1 Chronic obstructive pulmonary disease with (acute) exacerbation (principal); J96.01 Acute respiratory failure with hypoxia; G89.29 Other chronic pain; F17.210 Nicotine dependence, cigarettes, uncomplicated; Z59.0 Homelessness
CPT/HCPCS: 71020; G0378

== ENCOUNTER 2017-01-17 12:47 | Observation (INO) | payer MEDICAID ==
--- NOTE | 2017-01-17 13:40 | CPEKG ---
Heart Rate: 79 RR Interval: 759 P-R Interval: 108 QRSD Interval: 74 QT Interval: 388 QTC Interval: 445 P [place]: 42 QRS [place]: 62 T Wave [place]: 57 EKG Severity - BORDERLINE ECG - EKG Impression: SINUS RHYTHM EKG Impression: SHORT MA INTERVAL, ACCELERATED AV CONDUCTION Electronically Signed By: Jez Dunham 17-Jan-2017 15:47:04
--- NOTE | 2017-01-17 13:42 | EDPHY ---
H & P Stated Complaint: mid sternam chest pain since this am/nausea Source: Patient Exam Limitations: No limitations - Personal History Current Tetanus/Diphtheria Vaccine: Yes Tetanus Vaccine Date: 2010 - Medical/Surgical History Hx Asthma: No Hx Chronic Respiratory Disease: Yes Hx Diabetes: No Hx Cardiac Disease: No Hx Renal Disease: No Hx Cirrhosis: No Hx Alcoholism: No Hx HIV/AIDS: No Hx Splenectomy or Spleen Trauma: No Other PMH: COPD. R lung injury from "06/05" ([facility]). Chronic neck pain secondary to slipped disc at C4-C5. PTSD. herniated disc - Social History Smoking Status: Current every day smoker HPI/ROS: CHIEF COMPLAINT: Chest Pain HISTORY OF PRESENT ILLNESS: Patient complains of right-sided chest pain that started around 12:00 p.m. today. It is moderate to severe. Worse with exertion. Radiates to the right shoulder and neck. Some shortness of breath and cough. Recently diagnosed with bronchitis. No fever or chills. No abdominal pain. No trauma or injury. No history of venous thrombolic event. Does have a history of COPD and not currently on medications that she cannot afford the inhaler. No diagnosis of hypertension, diabetes or coronary artery disease. Patient is homeless says that she has not been told sleep as the police department keeps waking her up, as she [place] to sleep in the park. PRIOR CARDIAC WORKUP: No history of stress test or heart catheterization REVIEW OF SYSTEMS: Ten systems reviewed and are negative unless otherwise noted in the HPI EXAMINATION: General Appearance: Alert, no distress, unkempt Head: normocephalic, atraumatic Eyes: Pupils equal and round, no conjunctival pallor or injection ENT, Mouth: Mucous membranes moist. Uvula midline. Poor dentition. Neck: Normal inspection, supple, non-tender Respiratory: Scattered rhonchi. No consolidation or crackles. No distress or diminishment. Cardiovascular: Regular rate and rhythm. No murmur. Pulses intact distally. Gastrointestinal: Abdomen is soft and nontender Back: non-tender, no bony abnormalities Neurological: A&O, nonfocal, normal gait. GCS 15. Strength is symmetric in all 4 limbs. Skin: Warm and dry, no rash Extremities: Nontender, no pedal edema Psychiatric: Mood and affect normal DIFFERENTIAL DIAGNOSES: Including but not limited to in no particular order: Acute Chest Pain, ACS, Stable Angina, Pneumonia, PE, duodenitis, gastritis, esophagitis, GERD MDM: 1:35 p.m. Chest pain that started approximately 12:00 p.m. today. This is a right-sided chest pain that radiates into the arm and neck. Worse with exertion. Some shortness of breath. Also recent cough and reportedly diagnosed with bronchitis last week. No fever or chills. No trauma or injury. EKG has not yet been performed 3:05 p.m. Chest x-ray unremarkable. Troponin is negative. Laboratory studies are within normal limits. Given that the patient's pain started at 12:00 p.m., I recommended admission for observation and serial troponins. I have discussed the case with Dr. Betancourt, and he will admit the patient observation. The patient has also consented to this. She is admitted in stable condition. EKG: Interpreted by Dr. Dunham Rate is 79 beats per minute. Normal sinus rhythm. QT interval 388. P are 108. No ST depression or elevation. T-waves are inverted only in AVR and biphasic and V1. SUPERVISION: Patient was evaluated in conjunction with the supervising physician. Please see their note for details. (Tadeo Carrasco) Constitutional: Initial Vital Signs Temperature (C) 36.8 C 01/17/17 12:55 Heart Rate 97 01/17/17 12:55 Respiratory Rate 20 01/17/17 12:55 Blood Pressure 113/87 H 01/17/17 12:55 O2 Sat (%) 94 01/17/17 12:55 O2 Delivery Mode Room Air Allergies/Adverse Reactions: Penicillins Allergy (Unknown, Verified 01/17/17 12:54) egg Allergy (Verified 01/17/17 12:54) mushroom Allergy (Verified 01/17/17 12:54) Home Medications: Medication Instructions Recorded NK [No Known Home Meds] 01/17/17 Medical Decision Making - Diagnostics EKG Interpretation: EKG in [facility] did by me shows normal sinus rhythm with short MN interval of 0.10 weight. QRS otherwise appears normal. There is no significant ST elevation or depression. No arrhythmia. The rate is 79 (Jez Dunham) Imaging Results: Imaging Impressions Chest X-Ray 01/17/17 13:26 Impression: COPD/chronic diffuse interstitial lung disease. Nothing acute identified. ED Course/Re-evaluation: Patient also seen by me at 1:45 p.m.. I reviewed the history that chest discomfort started at about noon today. It is retrosternal. It is pressure. There is family history in that heart disease runs in the man side of the family. Exam shows stable vital signs. Lungs reveal mild expiratory and inspiratory rhonchi. Cardiac exam is normal. This could represent exacerbation of respiratory issues or acute coronary syndrome (Jez Dunham) - Data Points Laboratory Results: Laboratory Results 01/17/17 13:55 01/17/17 13:55 01/17/17 01/17/17 01/17/17 13:55 13:55 13:55 WBC 8.25 10^3/uL 10^3/uL (3.80-9.50) RBC 5.13 10^6/uL 10^6/uL (4.18-5.33) Hgb 14.9 g/dL g/dL (12.6-16.3) Hct 44.8 % % (38.0-47.0) MCV 87.3 fL fL (81.5-99.8) MCH 29.0 pg pg (27.9-34.1) MCHC 33.3 g/dL g/dL (32.4-36.7) RDW 12.8 % % (11.5-15.2) Plt Count 377 10^3/uL 10^3/uL (150-400) MPV 9.9 fL fL (8.7-11.7) Neut % (Auto) 52.7 % % (39.3-74.2) Lymph % (Auto) 34.4 % % (15.0-45.0) [place] % (Auto) 8.7 % % (4.5-13.0) Eos % (Auto) 3.0 % % (0.6-7.6) Baso % (Auto) 0.8 % % (0.3-1.7) Nucleat RBC Rel Count 0.0 % % (0.0-0.2) Absolute Neuts (auto) 4.34 10^3/uL 10^3/uL (1.70-6.50) Absolute Lymphs (auto) 2.84 10^3/uL 10^3/uL (1.00-3.00) Absolute Monos (auto) 0.72 10^3/uL 10^3/uL (0.30-0.80) Absolute Eos (auto) 0.25 10^3/uL 10^3/uL (0.03-0.40) Absolute Basos (auto) 0.07 10^3/uL 10^3/uL (0.02-0.10) Absolute Nucleated RBC 0.00 10^3/uL 10^3/uL (0-0.01) Immature Gran % 0.4 % % (0.0-1.1) Immature Gran # 0.03 10^3/uL 10^3/uL (0.00-0.10) PT 13.4 SEC SEC (12.0-15.0) INR 1.03 (0.83-1.16) APTT 24.6 SEC SEC (23.0-38.0) Sodium 142 mEq/L mEq/L (134-144) Potassium 4.3 mEq/L mEq/L (3.5-5.2) Chloride 108 mEq/L mEq/L (97-110) Carbon Dioxide 25 mEq/l mEq/l (22-31) Anion Gap 9 mEq/L mEq/L (8-16) BUN 13 mg/dL mg/dL (7-23) Creatinine 0.7 mg/dL mg/dL (0.6-1.0) Estimated GFR > 60 Glucose 100 mg/dL mg/dL (70-100) Calcium 9.6 mg/dL mg/dL (8.5-10.4) Total Bilirubin 0.6 mg/dL mg/dL (0.1-1.4) Conjugated Bilirubin 0.4 mg/dL mg/dL (0.0-0.5) Unconjugated Bilirubin 0.2 mg/dL mg/dL (0.0-1.1) AST 18 IU/L IU/L (14-46) ALT 32 IU/L IU/L (9-52) Alkaline Phosphatase 75 IU/L IU/L (38-126) Troponin I < 0.012 ng/mL ng/mL (0-0.034) NT-Pro-B Natriuret Pep 76 pg/mL pg/mL (0-125) Total Protein 6.9 g/dL g/dL (6.3-8.2) Albumin 4.2 g/dL g/dL (3.5-5.0) Lipase 127.0 IU/L IU/L (23-300) Medications Given: Discontinued Medications Albuterol Sulfate (Proventil Inh Prepack) 1 mdi [place] ONE Stop: 01/17/17 13:44 Last Admin: 01/17/17 15:27 Dose: Not Given Departure - Departure Disposition: [facility] Inpatient Acute Clinical Impression: Chest pain Qualifiers: Chest pain type: unspecified Qualified Code(s): R07.9 - Chest pain, unspecified Condition: Good
[2017-01-17] MEDS ORDERED: ALBUTEROL INH PREPACK MDI TAKEHOME ONE (13:43)
[2017-01-17 14:08] LABS: % IMMATURE GRANULYOCYTES 0.4 % (0.0-1.1); ABSOLUTE IMMATURE GRANULOCYTES 0.03 10^3/uL (0.00-0.10); ADD DIFF? NO; ADD MORPH? NO; ADD SCAN? NO; ATYPICAL LYMPHOCYTE FLAG 70 (0-99); FRAGMENT RBC FLAG 0 (0-99); HEMATOCRIT 44.8 % (38.0-47.0); HEMOGLOBIN 14.9 g/dL (12.6-16.3); LEFT SHIFT FLG 0 (0-99); LIPEMIA HEMOLYSIS FLAG 80 (0-99); MEAN CELL HEMOGLOBIN CONCENTR. 33.3 g/dL (32.4-36.7); MEAN CELL VOLUME 87.3 fL (81.5-99.8); MEAN PLATELET VOLUME 9.9 fL (8.7-11.7); PLATELET CLUMPS FLAG 10 (0-99); PLATELET COUNT 377 10^3/uL (150-400); RED BLOOD CELL COUNT 5.13 10^6/uL (4.18-5.33); RED CELL DISTRIBUTION WIDTH 12.8 % (11.5-15.2)
[2017-01-17 14:16] LABS: INR 1.03 (0.83-1.16); PROTIME(PATIENT) 13.4 SEC (12.0-15.0)
[2017-01-17 14:17] LABS: APTT 24.6 SEC (23.0-38.0)
[2017-01-17 14:48] LABS: ALANINE AMINOTRANSFERASE 32 IU/L (9-52); ALBUMIN 4.2 g/dL (3.5-5.0); ALKALINE PHOSPHATASE 75 IU/L (38-126); ANION GAP 9 mEq/L (8-16); ASPARTATE AMINOTRANSFERASE 18 IU/L (14-46); BILIRUBIN,TOTAL 0.6 mg/dL (0.1-1.4); BILIRUBIN-CONJUGATED 0.4 mg/dL (0.0-0.5); BILIRUBIN-UNCONJUGATED 0.2 mg/dL (0.0-1.1); CALCIUM 9.6 mg/dL (8.5-10.4); CARBON DIOXIDE 25 mEq/l (22-31); CHLORIDE 108 mEq/L (97-110); CREATININE 0.7 mg/dL (0.6-1.0); GLOMERULAR FILTRATION RATE > 60; GLUCOSE 100 mg/dL (70-100); POTASSIUM 4.3 mEq/L (3.5-5.2); SODIUM 142 mEq/L (134-144); TOTAL PROTEIN 6.9 g/dL (6.3-8.2)
[2017-01-17 14:56] LABS: TROPONIN I < 0.012 ng/mL (0-0.034)
--- NOTE | 2017-01-17 15:23 | PDGENHP ---
History and Physical - Chief Complaint chest pain - History of Present Illness 56 y/o homeless female with history of COPD and Tobacco use presents with sharp moderate substernal chest pain that began around noon today. The pain is non exertional and has been intermittent since the onset. She denies trauma, but was "flying a sign" when the pain began. She hasn't slept for 20 hours. She denies alcohol. She denies GERD or heart burn. History Information - Allergies/Home Medication List Allergies/Adverse Reactions: Penicillins Allergy (Unknown, Verified 01/17/17 12:54) egg Allergy (Verified 01/17/17 12:54) mushroom Allergy (Verified 01/17/17 12:54) Home Medications: NK [No Known Home Meds] 01/17/17 [Last Taken Unknown] I have personally reviewed and updated: family history, medical history, social history, surgical history - Past Medical History Additional medical history: COPD. ? Interstitial lung disease (patient reports this is due to 06/05 dust exposure). chronic low back pain. osteoarthritis - Surgical History Reports: no pertinent surgical hx - Family History Additional family history: alcohol abuse in the males in her family - Social History Smoking Status: Current every day smoker Tobacco Use: Cigarettes (1-2 per day) Additional social history: Patient is homeless, reports was kicked out of [facility] on 01/01/2017. She reports she is originally from [place], moved to [place] after 06/05. Review of Systems ROS: 10pt was reviewed & negative except for what was stated in HPI & below Physical Exam Temp Pulse Resp BP Pulse Ox 36.8 C 97 20 113/87 H 94 01/17/17 12:55 01/17/17 12:55 01/17/17 12:55 01/17/17 12:55 01/17/17 12:55 Constitutional: no apparent distress, appears nourished, not in pain Eyes: PERRL, anicteric sclera, EOMI Ears, Nose, Mouth, Throat: moist mucous membranes, hearing normal, ears appear normal, no oral mucosal ulcers Cardiovascular: regular rate and rhythym, no murmur, rub, or gallop, other (no tenderness to palp over the sternum), No edema Respiratory: no respiratory distress, no rales or rhonchi, clear to auscultation Gastrointestinal: normoactive bowel sounds, soft, non-tender abdomen, no palpable masses Genitourinary: no bladder fullness, no bladder tenderness Skin: warm, normal color, no rashes or abrasions, no fluctuance, no induration, No mottled Musculoskeletal: full muscle strength, no muscle tenderness, normal joint ROM, no joint effusions Neurologic: AAOx3, CN II-XII Intact, No facial droop Psychiatric: interacting appropriately, not anxious, not encephalopathic, thought process linear Lymph, Heme, Immunologic: no cervical LAD, no supraclavicular LAD Lab Data & Imaging Review 01/17/17 13:55 01/17/17 13:55 WBC 8.25 10^3/uL (3.80-9.50) 01/17/17 13:55 RBC 5.13 10^6/uL (4.18-5.33) 01/17/17 13:55 Hgb 14.9 g/dL (12.6-16.3) 01/17/17 13:55 Hct 44.8 % (38.0-47.0) 01/17/17 13:55 MCV 87.3 fL (81.5-99.8) 01/17/17 13:55 MCH 29.0 pg (27.9-34.1) 01/17/17 13:55 MCHC 33.3 g/dL (32.4-36.7) 01/17/17 13:55 RDW 12.8 % (11.5-15.2) 01/17/17 13:55 Plt Count 377 10^3/uL (150-400) 01/17/17 13:55 MPV 9.9 fL (8.7-11.7) 01/17/17 13:55 Neut % (Auto) 52.7 % (39.3-74.2) 01/17/17 13:55 Lymph % (Auto) 34.4 % (15.0-45.0) 01/17/17 13:55 [place] % (Auto) 8.7 % (4.5-13.0) 01/17/17 13:55 Eos % (Auto) 3.0 % (0.6-7.6) 01/17/17 13:55 Baso % (Auto) 0.8 % (0.3-1.7) 01/17/17 13:55 Nucleat RBC Rel Count 0.0 % (0.0-0.2) 01/17/17 13:55 Absolute Neuts (auto) 4.34 10^3/uL (1.70-6.50) 01/17/17 13:55 Absolute Lymphs (auto) 2.84 10^3/uL (1.00-3.00) 01/17/17 13:55 Absolute Monos (auto) 0.72 10^3/uL (0.30-0.80) 01/17/17 13:55 Absolute Eos (auto) 0.25 10^3/uL (0.03-0.40) 01/17/17 13:55 Absolute Basos (auto) 0.07 10^3/uL (0.02-0.10) 01/17/17 13:55 Absolute Nucleated RBC 0.00 10^3/uL (0-0.01) 01/17/17 13:55 Immature Gran % 0.4 % (0.0-1.1) 01/17/17 13:55 Immature Gran # 0.03 10^3/uL (0.00-0.10) 01/17/17 13:55 PT 13.4 SEC (12.0-15.0) 01/17/17 13:55 INR 1.03 (0.83-1.16) 01/17/17 13:55 APTT 24.6 SEC (23.0-38.0) 01/17/17 13:55 Sodium 142 mEq/L (134-144) 01/17/17 13:55 Potassium 4.3 mEq/L (3.5-5.2) 01/17/17 13:55 Chloride 108 mEq/L (97-110) 01/17/17 13:55 Carbon Dioxide 25 mEq/l (22-31) 01/17/17 13:55 Anion Gap 9 mEq/L (8-16) 01/17/17 13:55 BUN 13 mg/dL (7-23) 01/17/17 13:55 Creatinine 0.7 mg/dL (0.6-1.0) 01/17/17 13:55 Estimated GFR > 60 01/17/17 13:55 Glucose 100 mg/dL (70-100) 01/17/17 13:55 Calcium 9.6 mg/dL (8.5-10.4) 01/17/17 13:55 Total Bilirubin 0.6 mg/dL (0.1-1.4) 01/17/17 13:55 Conjugated Bilirubin 0.4 mg/dL (0.0-0.5) 01/17/17 13:55 Unconjugated Bilirubin 0.2 mg/dL (0.0-1.1) 01/17/17 13:55 AST 18 IU/L (14-46) 01/17/17 13:55 ALT 32 IU/L (9-52) 01/17/17 13:55 Alkaline Phosphatase 75 IU/L (38-126) 01/17/17 13:55 Troponin I < 0.012 ng/mL (0-0.034) 01/17/17 13:55 NT-Pro-B Natriuret Pep 76 pg/mL (0-125) 01/17/17 13:55 Total Protein 6.9 g/dL (6.3-8.2) 01/17/17 13:55 Albumin 4.2 g/dL (3.5-5.0) 01/17/17 13:55 Lipase 127.0 IU/L (23-300) 01/17/17 13:55 Visualized and Interpreted Chest x-ray results: Yes Chest X-Ray results: infiltrate (bilat diffuse interstitial) Visualized and Interpreted EKG results: Yes EKG Interpretation: Positive for: normal sinsus rhythm (79 bpm). Negative for: ST elevation, ST depression Assessment & Plan Assessment: 56 y/o homeless female with history of COPD and Tobacco use presents with sharp moderate substernal chest pain that began around noon today #sharp substernal chest pain atypical for ACS suspect MSK pain vs GERD -place in observation given her risk for acs -send 6 hour troponin -plan for treadmill stress test in AM -Trial antacids #diffuse interstitial infiltrates suspect underlying ILD -recommend outpatient pulm followup
[2017-01-17] MEDS ORDERED: ACETAMINOPHEN 325 MG TAB PO PRN (15:27)
[2017-01-17] MEDS ORDERED: MAG HYDROX/AL HYDROX/SIMETH 30 ML UDCUP PO PRN (15:28)
[2017-01-17] MEDS: NICOTINE 7 MG/24 HR PATCH TD SCH (19:03)
[2017-01-17] MEDS ORDERED: TEMAZEPAM 15 MG CAP PO SCH (22:30)
[2017-01-18] MEDS: NICOTINE 7 MG/24 HR PATCH TD SCH (08:52)
[2017-01-18 12:45] VITALS: PULSE 86; RESP 20; TEMP 98; O2SAT 90
[2017-01-18 12:47] VITALS: BP 144/90
[2017-01-18] MEDS ORDERED: REGADENOSON 0.4 MG/5 ML SYR IVP ONE (13:38)
--- NOTE | 2017-01-18 14:09 | CPIP ---
[f rep st] INVASIVE CARDIAC PROCEDURE PROCEDURE: Lexiscan pharmacologic nuclear stress test. INDICATION: The patient had chest discomfort. She was unable to complete an adequate regular Brock protocol stress test which has already been dictated. She has agreed to undergo a pharmacologic nuclear stress test. She gave informed consent. SUMMARY: Her baseline EKG showed no significant changes for ischemia. With the injection she received no chest pain, chest tightness, shortness of breath or diagnostic EKG changes. Nuclear images are pending. No complications. /[id number]/MODL MTDD
--- NOTE | 2017-01-18 14:19 | CPR ---
[f rep st] NONINVASIVE CARDIAC PROCEDURE REPORT PROCEDURE: Regular stress test. The patient has had a regular stress test on a Brock protocol. INDICATION: Chest discomfort. She gave informed consent and then went on a Brock protocol stress test for 2 minutes and 13 seconds . We stopped the test because she was getting profoundly short of breath, and she had reached 95% o f maximum predicted heart rate. It would be very difficult for her to go any further. The test was stopped. She had no significant arrhythmias. She had no diagnostic EKG changes with exercise. CONCLUSION: 1. This test is inconclusive because of very poor exercise tolerance. 2. At her peak exercise and 95% of maximum predicted heart rate, she had no diagnostic EKG changes or significant arrhythmias. 3. I have discussed the options with the patient, and she is willing to proceed with a pharmacologi c nuclear stress test. /[id number]/MODL
[2017-01-18] MEDS ORDERED: HYDROCODONE/APAP 5/325 TAB PO PRN (15:20)
--- NOTE | 2017-01-18 16:35 | PDDCSUM ---
Discharge Summary Discharge Summary: Dates of service 01/17-01/18/17 Consultations: cardiology Procedures performed: nuc stress test Hospital course by problem: # chest pain: w/w/u including nuc stress negative for cardiac ischemia. Hx of pain preceded by increased levels of exertion in her upper body and suspect this is msk. Dc home with short course of norco. # copd: with likely underlying ILD as well, imaging showing nothing acute, will need to f/u with pcp # dispo: dc home, patient homeless but will go to usual living situation DC required > 35 minutes of care more than half in coordination of care and face to face counseling of patient regarding f/u care plans Meds: see EHR
[2017-01-18] MEDS ORDERED: TEMAZEPAM 15 MG CAP PO SCH (21:00)
== END 2017-01-18 18:06 | disposition home or self-care (01) ==
LOC: F1N 16:00
PROVIDERS: ADMIT Family Medicine; ATTEND Internal Medicine
DX: R07.9 Chest pain, unspecified (principal); J44.9 Chronic obstructive pulmonary disease, unspecified; G89.29 Other chronic pain; F17.200 Nicotine dependence, unspecified, uncomplicated; Z59.0 Homelessness
CPT/HCPCS: 71020; 78452; 93005; 93017; 99285; A9500; G0378; J2785